=== PATIENT | female | born 1965 | race Caucasian/White ===

== ENCOUNTER 2018-11-19 05:42 | Day surgery (SDC) | payer BC ==
[2018-11-19] MEDS ORDERED: FENTAnyl 50 MCG/ML VIAL (08:02)
[2018-11-19] MEDS ORDERED: MIDAZOLAM 1 MG/ML 2 ML INJ ×2 (08:02)
== END 2018-11-19 11:00 | disposition home or self-care (01) ==
LOC: GIL 05:42
DX: K29.50 Unspecified chronic gastritis without bleeding (principal)
CPT/HCPCS: 43239; 88305; 88312

== ENCOUNTER 2019-02-22 07:24 | Day surgery (SDC) | payer BC ==
[2019-02-22] MEDS ORDERED: MIDAZOLAM 1 MG/ML 2 ML INJ ×3 (09:42)
[2019-02-22] MEDS ORDERED: FENTAnyl 50 MCG/ML VIAL (09:42)
== END 2019-02-22 09:56 | disposition home or self-care (01) ==
LOC: GIL 07:24
DX: Z12.11 Encounter for screening for malignant neoplasm of colon (principal); D12.5 Benign neoplasm of sigmoid colon; K64.8 Other hemorrhoids
CPT/HCPCS: 45380; 88305